=== PATIENT | male | born 1975 | race Two or more races ===

== ENCOUNTER 2017-08-02 15:50 | Emergency (ER) | payer OTHER ==
[~2017-08-02] VITALS: Ht 182.9 cm; Wt 104.0 kg
[2017-08-02] MEDS ORDERED: IBUPROFEN 600MG TABLET PO ONE (18:15)
[2017-08-02 18:32] VITALS: BP 169/76
== END 2017-08-02 19:25 | disposition home or self-care (01) ==
LOC: ER 15:50
DX: M25.532 Pain in left wrist (principal); V00.131A Fall from skateboard, initial encounter; Y93.51 Activity, roller skating (inline) and skateboarding; X50.3XXA Overexertion from repetitive movements, initial encounter; F17.210 Nicotine dependence, cigarettes, uncomplicated; X50.9XXA Other and unspecified overexertion or strenuous movements or postures, initial encounter; Y93.89 Activity, other specified; Y92.89 Other specified places as the place of occurrence of the external cause; R03.0 Elevated blood-pressure reading, without diagnosis of hypertension; F12.90 Cannabis use, unspecified, uncomplicated
CPT/HCPCS: 73110; 99284